=== PATIENT | female | born 1975 | race Caucasian/White ===

== ENCOUNTER 2016-10-03 18:26 | Emergency (ER) | payer OTHER ==
--- NOTE | 2016-10-03 18:43 | ER Document Report ---
ED Medical Screen (RME) - General Stated Complaint: RIGHT FOOT INJURY Notes: 41 yo female c/o pain to right foot x 3 days. dropped top of paper shredder on top of foot. tenderness to distal dorsal mid foot. + echymosis. TRAVEL OUTSIDE OF THE [place] IN LAST 30 DAYS: No - Related Data Allergies/Adverse Reactions: oxycodone [Oxycodone] Allergy (Severe, Verified 04/06/15 10:34) NAUSEA,DIZZINESS latex [Latex] Allergy (Verified 04/06/15 10:32) ITCHING morphine [Morphine] Adverse Reaction (Severe, Verified 04/06/15 10:32) CHEST HEAVY,SOB Past Medical History - Past Medical History Cardiac Medical History: Reports: Hx Hypertension - meds x yrs/160/102 office aware Denies: Hx Coronary Artery Disease, Hx Heart Attack Pulmonary Medical History: Reports: Hx Bronchitis, Hx Pneumonia Denies: Hx Asthma, Hx COPD Neurological Medical History: Reports: Hx Migraine. 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
[2016-10-03 22:06] VITALS: BP 138/100
--- NOTE | 2016-10-03 22:28 | ER Document Report ---
ED General - General Chief Complaint: Foot Pain Stated Complaint: RIGHT FOOT INJURY Mode of Arrival: Ambulatory Information source: Patient Notes: Patient is 41 yo white female who presents with right foot pain, swelling and bruising that started 2 days ago but progressively worsened today. She states she dropped her cell phone on the top of her foot and then a few hours later, dropped the top of the paper shredder to the same area. States she is able to ambulate but pain is worse with ambulation. She has tried aleve with no relief. TRAVEL OUTSIDE OF THE [place] IN LAST 30 DAYS: No - Related Data Allergies/Adverse Reactions: oxycodone [Oxycodone] Allergy (Severe, Verified 10/03/16 18:42) NAUSEA,DIZZINESS latex [Latex] Allergy (Verified 10/03/16 18:42) ITCHING morphine [Morphine] Adverse Reaction (Severe, Verified 10/03/16 18:42) CHEST HEAVY,SOB Past Medical History - Social History Smoking Status: Never Smoker Chew tobacco use (# tins/day): No Frequency of alcohol use: None Drug Abuse: None Family History: Reviewed & Not Pertinent Patient has suicidal ideation: No Patient has homicidal ideation: No - Past Medical History Cardiac Medical History: Reports: Hx Hypertension - meds x yrs/160/102 office aware Denies: Hx Coronary Artery Disease, Hx Heart Attack Pulmonary Medical History: Reports: Hx Bronchitis, Hx Pneumonia Denies: Hx Asthma, Hx COPD Neurological Medical History: Reports: Hx Migraine. Denies: Hx Cerebrovascular Accident, Hx Seizures Renal/ Medical History: Reports: Hx Kidney Stones. 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 Past Surgical History: Reports: Hx Cholecystectomy, Hx Genitourinary Surgery - ureter repair, Hx Gynecologic Surgery - D&C x2; endometrial biopsy, Hx Kidney ( Renal Surgery) - kidney stone removal - Immunizations Hx Diphtheria, Pertussis, Tetanus Vaccination: Yes Review of Systems - Review of Systems Constitutional: No symptoms reported EENT: No symptoms reported Cardiovascular: No symptoms reported Respiratory: No symptoms reported Gastrointestinal: No symptoms reported Genitourinary: No symptoms reported Female Genitourinary: No symptoms reported Musculoskeletal: See HPI Skin: No symptoms reported Hematologic/Lymphatic: No symptoms reported Neurological/Psychological: No symptoms reported Physical Exam - Vital signs Vitals: Temp Pulse Resp BP Pulse Ox 97.6 F 65 18 149/94 H 99 10/03/16 18:39 10/03/16 18:39 10/03/16 18:39 10/03/16 18:39 10/03/16 18:39 Interpretation: Hypertensive - Notes Notes: PHYSICAL EXAM: CONSTITUTIONAL: Alert and oriented, well-appearing and in no acute distress. HENT: Normocephalic, atraumatic. Moist mucous membranes. HEART: Regular rate and rhythm without murmurs. LUNGS: CTAB and equal. No wheezes, rales or rhonchi. EXTREMITIES: Right foot - tender to palpation to dorsal surface of foot just proximal to MTP joints with associated ecchymosis and mild swelling. No obvious deformities noted. Distal pulses intact. Normal range of motion but flexion/ extension of toes causes pain. no pitting edema. No cyanosis. Cap Refill <3 seconds. SKIN: Warm and dry. Normal turgor. No rashes or lesions noted. Course - Re-evaluation Re-evalutation: 10/03/16 22:26 Patient seen and examined. Exam of right foot reveals ecchymosis and mild swelling, no obvious deformities. Neurovascular intact. No compartment syndrome noted. Xray study reviewed and is negative for acute bony abnormality. Diagnosed with contusion to area - will provide KEVIN wrap for comfort, patient has crutches at home. Will provide scripts for pain medication, discharged home in stable condition. Instructed to follow-up with PMD as needed. Patient gave verbal agreement with plan, all questions answered. - Vital Signs Vital signs: Temp Pulse Resp BP Pulse Ox 98.5 F 67 16 138/100 H 98 10/03/16 22:03 10/03/16 22:03 10/03/16 22:03 10/03/16 22:03 10/03/16 22:03 - Diagnostic Test Radiology reviewed: Image reviewed, Reports reviewed Procedures - Immobilization Right Foot Pre-Proc Neuro Vasc Exam: Normal Immobilizer type: Kevin wrap Performed by: GLENN Post-Proc Neuro Vasc Exam: Normal Alignment checked and good: Yes Discharge - Discharge Clinical Impression: Contusion, foot Qualifiers: Encounter type: initial encounter Laterality: right Qualified Code(s): S90.31XA - Contusion of right foot, initial encounter Condition: Stable Disposition: HOME, SELF-CARE Additional Instructions: Contusion Your injury has resulted in a contusion -- a crushing of the deep tissues. No injury to important structures was detected during the physician's exam. Contusions vary in the amount of pain they cause, and in the length of time required for healing. Typically, the area will become bruised, and will remain painful to touch for two or three weeks. However, most patients are back to working and playing within a few days. After the initial period of rest and cold-packs, your symptoms (together with the doctor's recommendations) will determine how rapidly you can get back to full activity. Usually this means "do what feels okay, but don't do things that hurt." If re-examination was recommended, it's important to follow up as instructed. Call the doctor or return any time if pain increases, if swelling becomes severe, if you develop numbness or weakness in an injured extremity, or if any other alarming symptoms occur. Oral Narcotic Medication You have been given a prescription for pain control. This medication is a narcotic. It's best taken with food, as nausea can result if taken on an empty stomach. Don't operate machinery or drive within six hours of taking this medication. Do not combine this medicine with alcohol, or with any medication which can cause sedation (such as cold tablets or sleeping pills) unless you get permission from the physician. Narcotics tend to cause constipation. If possible, drink plenty of fluids and eat a diet high in fiber and fruits. Anti-Inflammatory Medication You have received a prescription for an antiinflammatory agent. This is an excellent, safe drug for pain control. In addition, it has potent antiinflammatory effects which are beneficial, especially in the treatment of injuries, arthritis, or tendonitis. It's best to take this medicine with food. Persons with ulcer disease or allergy to aspirin should notify their physician of this before taking this drug. Take the medication exactly as prescribed. Don't take additional doses unless instructed to do so by your doctor. If you develop wheezing, shortness of breath, hives, faintness, stomach pain, vomiting, or dark black stools, return for re-evaluation at once. Return immediately for any new or worsening symptoms. Follow-up with primary care provider, call tomorrow to make followup appointment. Prescriptions: Tramadol HCl [Ultram] 50 mg PO Q8HP PRN #10 tablet PRN Reason: Ondansetron [Zofran Odt 4 mg Tablet] 1 tab PO Q4H PRN #10 tab.rapdis PRN Reason: For Nausea/Vomiting Forms: Elevated Blood Pressure, Return to Work
== END 2016-10-03 22:30 | disposition home or self-care (01) ==
LOC: ER 18:26
DX: S90.31XA Contusion of right foot, initial encounter (principal); W20.8XXA Other cause of strike by thrown, projected or falling object, initial encounter; I10 Essential (primary) hypertension; Z88.5 Allergy status to narcotic agent; Z91.040 Latex allergy status
CPT/HCPCS: 99283

== ENCOUNTER 2016-11-30 18:40 | Emergency (ER) | payer OTHER ==
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
[2016-12-01 05:09] VITALS: BP 165/98
== END 2016-11-30 23:35 | disposition home or self-care (01) ==
LOC: ER 18:40
DX: M25.571 Pain in right ankle and joints of right foot (principal); I10 Essential (primary) hypertension; Z87.442 Personal history of urinary calculi; Z90.49 Acquired absence of other specified parts of digestive tract
CPT/HCPCS: 99283; 73610; L1902

== ENCOUNTER 2017-08-22 17:54 | Emergency (ER) | payer OTHER ==
[2017-08-22] MEDS ORDERED: DIPHENHYDRAMINE HCL 50 MG/ML VIAL IV ONE (19:46)
[2017-08-22] MEDS ORDERED: DEXAMETHASONE SOD PHOS INJ 10 MG/1 ML VIAL IV ONE (19:46)
[2017-08-22] MEDS ORDERED: PROCHLORPERAZINE EDISYLATE INJ 10 MG/2 ML VIAL IV ONE (19:46)
--- NOTE | 2017-08-22 19:46 | ER Document Report ---
ED Medical Screen (RME) - General Chief Complaint: High Blood Pressure Stated Complaint: BLOOD PRESSURE ISSUES Time Seen by Provider: 08/22/17 18:28 Mode of Arrival: Ambulatory Information source: Patient Notes: Patient presents complaining of headache for the past week. Patient states pain is to bilateral temporal area. Patient also reports that her blood pressures been running higher than normal and was 157/108 at home. Patient denies any head injury. Patient has been compliant with her antihypertensive medications. Patient took Fioricet tablets at home today without relief of her headache symptoms. Patient states this headache is typical of migraines that she has had in the past. Patient does report photophobia phonophobia. I have greeted and performed a rapid initial assessment of this patient. A comprehensive ED assessment and evaluation of the patient, analysis of test results and completion of the medical decision making process will be conducted by additional ED providers. TRAVEL OUTSIDE OF THE [place] IN LAST 30 DAYS: No - Related Data Allergies/Adverse Reactions: oxycodone [Oxycodone] Allergy (Severe, Verified 10/03/16 18:42) NAUSEA,DIZZINESS latex [Latex] Allergy (Verified 10/03/16 18:42) ITCHING morphine [Morphine] Adverse Reaction (Severe, Verified 10/03/16 18:42) CHEST HEAVY,SOB Past Medical History - Social History Frequency of alcohol use: None Drug Abuse: None - Past Medical History Cardiac Medical History: Reports: Hx Hypertension - meds x yrs/160/102 office aware Denies: Hx Coronary Artery Disease, Hx Heart Attack Pulmonary Medical History: Reports: Hx Bronchitis, Hx Pneumonia Denies: Hx Asthma, Hx COPD Neurological Medical History: Reports: Hx Migraine. Denies: Hx Cerebrovascular Accident, Hx Seizures Renal/ Medical History: Reports: Hx Kidney Stones. 

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
[2017-08-23 01:02] VITALS: BP 135/97
== END 2017-08-23 01:00 | disposition home or self-care (01) ==
LOC: ER 17:54
DX: R51 Headache (principal); R03.0 Elevated blood-pressure reading, without diagnosis of hypertension
CPT/HCPCS: 99283; 96374; 96375; J1200; J0780; J1100

== ENCOUNTER → 2017-09-02 | Outpatient (CLI) | payer OTHER ==
--- NOTE | 2017-09-02 15:04 | RADIOLOGY REPORT (SQ) ---
EXAM DESCRIPTION: CT HEAD WITHOUT COMPLETED DATE/TIME: 09/02/2017 2:03 pm REASON FOR STUDY: R51 HEADACHE R51 HEADACHE COMPARISON: None. TECHNIQUE: Axial images acquired through the brain without intravenous contrast. Images reviewed wi th bone, brain and subdural windows. Images stored on PACS. All CT scanners at this facility use dose modulation, iterative reconstruction, and/or weight based d osing when appropriate to reduce radiation dose to as low as reasonably achievable (ALARA). [facility]: Dose Right [facility]: CareDose [facility]: Dose Right [facility]: Teradose 4D [facility]: Immedia RADIATION DOSE: CT Rad equipment meets quality standard of care and radiation dose reduction techniq ues were employed. CTDIvol: 49.0 mGy. DLP: 783 mGy-cm. mGy. LIMITATIONS: None. FINDINGS: VENTRICLES: Normal size and contour. CEREBRUM: No masses. No hemorrhage. No midline shift. No evidence for acute infarction. Normal gra y/white matter differentiation. No areas of low density in the white matter. CEREBELLUM: No masses. No hemorrhage. No alteration of density. No evidence for acute infarction. EXTRAAXIAL SPACES: No fluid collections. No masses. ORBITS AND GLOBE: No intra- or extraconal masses. Normal contour of globe without masses. CALVARIUM: No fracture. PARANASAL SINUSES: No fluid or mucosal thickening. SOFT TISSUES: No mass or hematoma. OTHER: No other significant finding. IMPRESSION: NORMAL BRAIN CT WITHOUT CONTRAST. EVIDENCE OF ACUTE STROKE: NO. COMMENT: Quality ID # [id number]: Final reports with documentation of one or more dose reduction techniques (e.g., Automated exposure control, adjustment of the mA and/or kV according to patient size, use of iterative reconstruction technique) TECHNICAL DOCUMENTATION: JOB ID: [id number] 2010 [employer]- All Rights Reserved
== END ==
LOC: RAD 14:17
PROVIDERS: ATTEND Physician Assistant
DX: R51 Headache (principal)
CPT/HCPCS: 70450

== ENCOUNTER 2018-02-18 19:24 | Emergency (ER) | payer OTHER ==
[2018-02-18] MEDS ORDERED: ASPIRIN 81 MG TABLET, CHEWABLE PO ONE (19:30)
--- NOTE | 2018-02-18 19:57 | RADIOLOGY REPORT (SQ) ---
EXAM DESCRIPTION: CHEST SINGLE VIEW COMPLETED DATE/TIME: 02/18/2018 7:43 pm REASON FOR STUDY: cp COMPARISON: 09/25/2014 EXAM PARAMETERS: NUMBER OF VIEWS: One view. TECHNIQUE: Single frontal radiographic view of the chest acquired. RADIATION DOSE: NA LIMITATIONS: None. FINDINGS: LUNGS AND PLEURA: No opacities, masses or pneumothorax. No pleural effusion. MEDIASTINUM AND HILAR STRUCTURES: No masses. Contour normal. HEART AND VASCULAR STRUCTURES: Heart normal in size. Normal vasculature. BONES: No acute findings. HARDWARE: None in the chest. OTHER: No other significant finding. IMPRESSION: NO ACUTE RADIOGRAPHIC FINDING IN THE CHEST. TECHNICAL DOCUMENTATION: JOB ID: [id number] [place]-72 2010 [employer]- All Rights Reserved Reading location - IP/workstation name: [place]
[2018-02-18 20:31] LABS: ABSOLUTE BASOPHILS # (AUTO) 0.1 10^3/uL (0.0-0.2); ABSOLUTE EOSINOPHILS # (AUTO) 0.2 10^3/uL (0.0-0.6); ABSOLUTE LYMPHOCYTES (AUTO) 1.8 10^3/uL (0.5-4.7); ABSOLUTE MONOCYTES (AUTO) 0.5 10^3/uL (0.1-1.4); ABSOLUTE NEUT (AUTO) 8.8 10^3/uL (1.7-8.2); BASOPHILS % (AUTO) 0.7 % (0-2); EOSINOPHILS % (AUTO) 1.4 % (0-6); HEMATOCRIT 43.1 % (36.0-47.0); HEMOGLOBIN 14.3 g/dL (12.0-15.5); LYMPHOCYTES % (AUTO) 16.1 % (13-45); MEAN CORPUSCULAR HGB CONC 33.2 g/dL (32.0-36.0); MEAN CORPUSCULAR VOLUME 84 fl (80-97); MONOCYTES % (AUTO) 4.5 % (3-13); PLATELET COUNT 329 10^3/uL (150-450); RED BLOOD COUNT 5.11 10^6/uL (3.72-5.28); RED CELL DISTRIBUTION WIDTH 14.4 % (11.5-14.0); SEGMENTED NEUTROPHILS % (AUTO) 77.3 % (42-78); TOTAL CELLS COUNTED % (AUTO) 100 %; WHITE BLOOD COUNT 11.4 10^3/uL (4.0-10.5)
--- NOTE | 2018-02-18 20:43 | ER Document Report ---
ED Medical Screen (RME) - General Chief Complaint: High Blood Pressure Stated Complaint: CHEST PAIN Time Seen by Provider: 02/18/18 20:33 Mode of Arrival: Ambulatory Information source: Patient Notes: 43-year-old female patient presenting with chief complaint of chest pain, dizziness and mild headache. Patient reports that her blood pressure has typically been controlled with her lisinopril and HCTZ however over the last few days her blood pressures have been in the 160s over 110 range. Patient reports that the chest pain started approximately 1 hour prior to arrival, feels like an achiness or pressure on the left side of her chest with mild radiation into the right shoulder. Patient reports associated shortness of breath with mild nausea. Pain is reproducible with palpation. Exam: Tenderness to palpation to left chest wall and left shoulder. Lung sounds clear to auscultation bilaterally. I have greeted and performed a rapid initial assessment of this patient. A comprehensive ED assessment and evaluation of the patient, analysis of test results and completion of the medical decision making process will be conducted by additional ED providers. Dictation of this chart was performed using voice recognition software; therefore, there may be some unintended grammatical errors. TRAVEL OUTSIDE OF THE [place] IN LAST 30 DAYS: No - Related Data Allergies/Adverse Reactions: oxycodone [Oxycodone] Allergy (Severe, Verified 10/03/16 18:42) NAUSEA,DIZZINESS latex [Latex] Allergy (Verified 10/03/16 18:42) ITCHING morphine [Morphine] Adverse Reaction (Severe, Verified 10/03/16 18:42) CHEST HEAVY,SOB Past Medical History - Social History Chew tobacco use (# tins/day): No Frequency of alcohol use: None Drug Abuse: None - Past Medical History Cardiac Medical History: Reports: Hx Hypertension - meds x yrs/160/102 office aware Denies: Hx Coronary Artery Disease, Hx Heart Attack Pulmonary Medical History: Reports: Hx Bronchitis, Hx Pneumonia Denies: Hx Asthma, Hx COPD Neurological Medical History: Reports: Hx Migraine. Denies: Hx Cerebrovascular Accident, Hx Seizures Renal/ Medical History: Reports: Hx Kidney Stones. 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 Past Surgical History: Reports: Hx Cholecystectomy, Hx Genitourinary Surgery - ureter repair, Hx Gynecologic Surgery - D&C x2; endometrial biopsy, Hx Kidney ( Renal Surgery) - kidney stone removal - Immunizations Hx Diphtheria, Pertussis, Tetanus Vaccination: Yes Physical Exam - Vital signs Vitals: Temp Pulse Resp BP Pulse Ox 98.7 F 80 18 189/111 H 100 02/18/18 19:28 02/18/18 19:28 02/18/18 19:28 02/18/18 19:28 02/18/18 19:28 Course - Vital Signs Vital signs: Temp Pulse Resp BP Pulse Ox 98.7 F 80 18 161/116 H 100 02/18/18 19:28 02/18/18 19:28 02/18/18 19:28 02/18/18 19:37 02/18/18 19:28 - Laboratory Result Diagrams: 02/18/18 19:50 02/18/18 19:50 Laboratory results interpreted by me: 02/18/18 19:50 WBC 11.4 H RDW 14.4 H Absolute Neutrophils 8.8 H Doctor's Discharge - Discharge Referrals: ZAINAB KNAPP PA-C [Primary Care Provider] - Follow up as needed
[2018-02-18 21:02] LABS: ALBUMIN 4.4 g/dL (3.5-5.0); ALKALINE PHOSPHATASE 107 U/L (38-126); ANION GAP 15 (5-19); ASPARTATE AMINO TRANSFERASE 31 U/L (14-36); BLOOD UREA NITROGEN 11 mg/dL (7-20); CALCIUM 9.3 mg/dL (8.4-10.2); CARBON DIOXIDE 23 mmol/L (22-30); CHLORIDE 107 mmol/L (98-107); GLUCOSE 104 mg/dL (75-110); POTASSIUM 4.7 mmol/L (3.6-5.0); SODIUM 144.8 mmol/L (137-145)
[2018-02-18 21:03] LABS: ALANINE AMINOTRANSFERASE 36 U/L (9-52); BILIRUBIN,DIRECT 0.4 mg/dL (0.0-0.4); BILIRUBIN,TOTAL 0.6 mg/dL (0.2-1.3); CREATINE KINASE 46 U/L (30-135); TOTAL PROTEIN 8.1 g/dL (6.3-8.2)
[2018-02-18 21:20] LABS: CREATINE KINASE MB < 0.22 ng/mL (<4.55); TROPONIN I < 0.012 ng/mL
--- NOTE | 2018-02-19 00:13 | EKG REPORT ---
SEVERITY:- ABNORMAL ECG - SINUS RHYTHM LEFT VENTRICULAR HYPERTROPHY : Confirmed by: Destiny Diaz MD 19-Feb-2018 00:12:54
--- NOTE | 2018-02-19 02:03 | ER Document Report ---
ED General - General Mode of Arrival: Ambulatory Information source: Patient TRAVEL OUTSIDE OF THE [place] IN LAST 30 DAYS: No <RONNY LAO - Last Filed: 02/19/18 02:25> <CONNER STACK - Last Filed: 02/19/18 03:28> - General Chief Complaint: High Blood Pressure Stated Complaint: CHEST PAIN Time Seen by Provider: 02/18/18 20:33 Notes: Patient is a 43 year old female with HTN and insomnia presents to the emergency department complaining of multiple symptoms including high blood pressure, dizziness and chest pain. Patient sates that she has HTN which is normally controlled with Linisopril and HCTZ. For the last few days she states her blood pressure has been around 175/111 further stating her blood pressure is typically around 150/108. She describes her chest pain as a dull and achy chest pressure onset yesterday. She also complains of decreased apetiite. Patient denies any trouble breathing, diaphoresis, nausea or taking decongestants. (RONNY LAO) - Related Data Allergies/Adverse Reactions: oxycodone [Oxycodone] Allergy (Severe, Verified 10/03/16 18:42) NAUSEA,DIZZINESS latex [Latex] Allergy (Verified 10/03/16 18:42) ITCHING morphine [Morphine] Adverse Reaction (Severe, Verified 10/03/16 18:42) CHEST HEAVY,SOB Past Medical History - General Information source: Patient - Social History Smoking Status: Never Smoker Chew tobacco use (# tins/day): No Frequency of alcohol use: None Drug Abuse: None Family History: Hypertension, Malignancy Patient has suicidal ideation: No Patient has homicidal ideation: No - Past Medical History Cardiac Medical History: Reports: Hx Hypertension - meds x yrs/160/102 office aware Pulmonary Medical History: Reports: Hx Bronchitis, Hx Pneumonia Neurological Medical History: Reports: Hx Migraine Renal/ Medical History: Reports: Hx Kidney Stones Musculoskeletal Medical History: 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 Past Surgical History: Reports: Hx Cholecystectomy, Hx Genitourinary Surgery - ureter repair, Hx Gynecologic Surgery - D&C x2; endometrial biopsy, Hx Kidney ( Renal Surgery) - kidney stone removal - Immunizations Hx Diphtheria, Pertussis, Tetanus Vaccination: Yes <RONNY LAO - Last Filed: 07/25/18 02:25> Review of Systems - Review of Systems Constitutional: No symptoms reported EENT: No symptoms reported Cardiovascular: See HPI, Chest pain, Dizziness Respiratory: No symptoms reported Gastrointestinal: No symptoms reported Genitourinary: No symptoms reported Female Genitourinary: No symptoms reported Musculoskeletal: No symptoms reported Skin: No symptoms reported Hematologic/Lymphatic: No symptoms reported Neurological/Psychological: No symptoms reported -: Yes All other systems reviewed and negative <RONNY LAO - Last Filed: 02/19/18 02:25> Physical Exam <RONNY LAO - Last Filed: 02/19/18 02:25> <CONNER STACK - Last Filed: 02/19/18 03:28> - Vital signs Vitals: Temp Pulse Resp BP Pulse Ox 98.7 F 80 18 189/111 H 100 02/18/18 19:28 02/18/18 19:28 02/18/18 19:28 02/18/18 19:28 02/18/18 19:28 - Notes Notes: GENERAL: Alert, interacts well. No acute distress. HEAD: Normocephalic, atraumatic. EYES: Pupils equal, round, and reactive to light. Extraocular movements intact. ENT: Oral mucosa moist, tongue midline. NECK: Full range of motion. Supple. Trachea midline. LUNGS: Clear to auscultation bilaterally, no wheezes, rales, or rhonchi. No respiratory distress. HEART: Regular rate and rhythm. No murmurs, gallops, or rubs. ABDOMEN: Soft, non-tender. Non-distended. Bowel sounds present in all 4 quadrants. EXTREMITIES: Moves all 4 extremities spontaneously. No edema, radial and dorsalis pedis pulses 2/4 bilaterally. No cyanosis. NEUROLOGICAL: Alert and oriented x3. Normal speech. PSYCH: Normal affect, normal mood. SKIN: Warm, dry, normal turgor. No rashes or lesions noted. (RONNY LAO) Course - Laboratory Result Diagrams: 02/18/18 19:50 02/18/18 19:50 <TASHIAJAKEMICHAEL - Last Filed: 02/19/18 02:25> - Laboratory Result Diagrams: 02/18/18 19:50 02/18/18 19:50 <CONNER STACK - Last Filed: 02/19/18 03:28> - Re-evaluation Re-evalutation: 02/19/18 02:15 CBC shows mild leukocytosis 11.4, CMP grossly unremarkable, cardiac enzymes negative, chest x-ray shows no acute process, EKG is nonischemic. Patient is low risk by the HEART score for ischemic cardiac disease. Patient is stress test 3 years ago which is negative, patient is recommended to have a stress test as an outpatient. Patient will be discharged home. Patient is going to be started on hydralazine here 10 mg and given a prescription to use an outpatient however she has been intolerant of multiple medications in the past so we would like to trial it here first before she fills her prescription as outpatient. Patient is to follow-up with Zainab mg within the next 2 days for a recheck. Etiology of her chest pain is unclear. 02/19/18 02:17 This is not thought to be hypertensive urgency as her chest pain has not changed regardless what her blood pressure is. (CONNER STACK) - Vital Signs Vital signs: Temp Pulse Resp BP Pulse Ox 98.7 F 66 16 137/91 H 100 02/18/18 23:53 02/18/18 23:53 02/19/18 03:01 02/19/18 03:01 02/19/18 03:01 - Laboratory Laboratory results interpreted by me: 02/18/18 19:50 WBC 11.4 H RDW 14.4 H Absolute Neutrophils 8.8 H - EKG Interpretation by Me Additional EKG results interpreted by me: 02/19/18 02:17 EKG shows sinus rhythm at a rate of 77, patient's or depressions, isolated T- wave inversions in lead III per my interpretation. (CONNER STACK) Discharge <RONNY LAO - Last Filed: 02/19/18 02:25> <CONNER STACK - Last Filed: 02/19/18 03:28> - Discharge Clinical Impression: Chest pain with low risk for cardiac etiology, Uncontrolled hypertension Condition: Stable Disposition: HOME, SELF-CARE Additional Instructions: Chest Pain of Unclear Cause The exact cause of your chest pain isn't clear. Fortunately, there is no evidence of a dangerous medical condition. Further testing may be required to find the source of the pain. Most often, we find that this pain is coming from the chest wall -- the muscles or rib joints in the chest. But chest pain can come from the lung and lung lining, the esophagus, the heart valves or heart lining, and even the stomach or gallbladder. Rest. Eat lightly until the pain is gone. We may prescribe medicine for pain and inflammation. You should call the physician immediately if the pain radiates to the shoulder, jaw or arms; if you start to run a fever or develop a cough; or if you develop shortness of breath, or other new or alarming symptoms. Prescriptions: Hydralazine HCl 10 mg PO Q6H #40 tablet Referrals: ZAINAB MG PA-C [Primary Care Provider] - Follow up in 3-5 days Scribe Attestation: 02/19/18 03:28 I personally performed the services described in the documentation, reviewed and edited the documentation which was dictated to the scribe in my presence, and it accurately records my words and actions. (CONNER STACK) Scribe Documentation - Scribe Written by Yevgeniy:: Yevgeniy Quintero, 02/19/2018 02:11 acting as scribe for :: Rosalva <RONNY LAO - Last Filed: 02/19/18 02:25>
[2018-02-19] MEDS ORDERED: HYDRALAZINE HCL 10 MG TABLET PO ONE (02:15)
[2018-02-19 03:04] VITALS: BP 137/91
== END 2018-02-19 03:09 | disposition home or self-care (01) ==
LOC: ER 19:24
DX: R07.9 Chest pain, unspecified (principal); I10 Essential (primary) hypertension; Z87.442 Personal history of urinary calculi; Z90.49 Acquired absence of other specified parts of digestive tract; Z91.040 Latex allergy status; Z88.6 Allergy status to analgesic agent
CPT/HCPCS: 93005; 99284; 36415; 82553; 82550; 85025; 80053; 84484; 71045; 93010; J3490

== ENCOUNTER 2018-09-07 05:55 | Emergency (ER) | payer OTHER ==
[2018-09-07] MEDS ORDERED: KETOROLAC TROMETHAMINE INJ/PF 30 MG/1 ML SDV IV ONE (06:43)
[2018-09-07] MEDS ORDERED: IPRATROPIUM/ALBUTEROL 0.5-2.5 MG/3 ML AMPUL NEB ONE (06:43)
[2018-09-07] MEDS ORDERED: NORMAL SALINE 1000 ML 1,000 ML IV ONE (06:43)
--- NOTE | 2018-09-07 06:46 | ER Document Report ---
ED General - General Chief Complaint: Chest Congestion Stated Complaint: CHEST CONGESTION Time Seen by Provider: 09/07/18 06:31 Primary Care Provider: ZAINAB KNAPP PA-C [Primary Care Provider] - Follow up as needed TRAVEL OUTSIDE OF THE [place] IN LAST 30 DAYS: No - HPI Notes: Patient is a 43-year-old female that presents to the emergency department for chief complaint of cough, congestion, nausea, vomiting, diarrhea. Patient reports 4 days of cough, sinus congestion and postnasal drip. She states she has a history of bronchitis and has occasionally used an inhaler when she has colds. She denies any tobacco use. She did not get an influenza vaccine this year. She states her temperature yesterday was 100.0 at home. She has been taking [place] with cold remedy but has not been able to tolerated in the last 2 days. She states she has had increased nausea vomiting and diarrhea for 2 days. She denies any associated abdominal pain. Past Medical History: Hypertension Past Surgical History: Cholecystectomy, hysterectomy Social History: Denies drugs alcohol and tobacco Family History: Reviewed and noncontributory for presenting illness Allergies: Reviewed, see documented allergy list. REVIEW OF SYSTEMS: CONSTITUTIONAL : fever No chills No diaphoresis No recent illness EENT: No vision changes No congestion No sore throat CARDIOVASCULAR: No chest pain No palpitations RESPIRATORY: shortness of breath cough GASTROINTESTINAL: No abdominal pain nausea vomiting diarrhea GENITOURINARY: No dysuria No hematuria No difficulty urinating MUSCULOSKELETAL: No back pain No leg pain No arm pain SKIN: No rashes No lesions LYMPHATIC: No swollen, enlarged glands. NEUROLOGICAL: No lightheadedness No headache No weakness No paresthesias PSYCHIATRIC: No anxiety No depression PHYSICAL EXAMINATION: Vital signs reviewed, nursing noted reviewed. GENERAL: Well-appearing, well-nourished and in no acute distress. HEAD: Atraumatic, normocephalic. EYES: Eyes appear normal, extraocular movements intact, sclera anicteric, conjunctiva are normal. ENT: nares patent, oropharynx clear without exudates. Mildly dry mucous membranes. NECK: Normal range of motion, supple without lymphadenopathy LUNGS: Breath sounds have mild end expiratory wheezing. No accessory muscle use or retractions HEART: Tachycardic rate and regular rhythm without murmurs ABDOMEN: Soft, nontender, normoactive bowel sounds. No rebound, guarding, or rigidity. No masses appreciated. EXTREMITIES: Nontender, good range of motion, no pitting or edema. NEUROLOGICAL: No focal neurological deficits. Moves all extremities spontane ously Motor and sensory grossly intact on exam. PSYCH: Normal mood, normal affect. SKIN: Warm, Dry, normal turgor, no rashes or lesions noted on exposed skin - Related Data Allergies/Adverse Reactions: oxycodone [Oxycodone] Allergy (Severe, Verified 09/07/18 06:38) NAUSEA,DIZZINESS hydrocodone Allergy (Verified 09/07/18 06:38) latex [Latex] Allergy (Verified 09/07/18 06:38) ITCHING morphine [Morphine] Adverse Reaction (Severe, Verified 09/07/18 06:38) CHEST HEAVY,SOB Past Medical History - Social History Smoking Status: Never Smoker Frequency of alcohol use: None Drug Abuse: None Family History: Hypertension, Malignancy Patient has suicidal ideation: No Patient has homicidal ideation: No - Past Medical History Cardiac Medical History: Reports: Hx Hypertension - meds x yrs/160/102 office aware Denies: Hx Coronary Artery Disease, Hx Heart Attack Pulmonary Medical History: Reports: Hx Bronchitis, Hx Pneumonia Denies: Hx Asthma, Hx COPD Neurological Medical History: Reports: Hx Migraine. Denies: Hx Cerebrovascular Accident, Hx Seizures Renal/ Medical History: Reports: Hx Kidney Stones. 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 Nursing notes reviewed. Patient is afebrile and nontoxic in appearance. She is mildly tachycardic with dry mucous membranes and was given IV hydration, Toradol and DuoNeb for symptom medic management. 09/07/18 07:48 Patient reevaluated. She does report some symptomatic improvement after medication. Chest x-ray shows no underlying pneumonia. Her influenza is negative. Her lab work shows a mild elevation in LFTs likely related to her recent vomiting. Her abdomen is soft with no focal tenderness and she is status post cholecystectomy. I do not feel further imaging of her abdomen is currently indicated. She was counseled on taking her albuterol inhaler 2 puffs every 4 hours and will be given Tessalon Perles for further cough management. She is breathing well on room air and is stable for discharge. She will follow with primary care in the next few days for reevaluation. Laboratory 09/07/18 09/07/18 09/07/18 06:50 06:50 06:52 WBC 8.2 RBC 5.14 Hgb 14.4 Hct 42.6 MCV 83 MCH 28.0 MCHC 33.7 RDW 14.7 H Plt Count 316 Seg Neutrophils % 84.9 H Lymphocytes % 5.7 L Monocytes % 6.8 Eosinophils % 1.8 Basophils % 0.8 Absolute Neutrophils 7.0 Absolute Lymphocytes 0.5 Absolute Monocytes 0.6 Absolute Eosinophils 0.1 Absolute Basophils 0.1 Sodium 141.3 Potassium 4.3 Chloride 105 Carbon Dioxide 24 Anion Gap 12 BUN 13 Creatinine 0.58 Est GFR ( Amer) > 60 Est GFR (Non-Af Amer) > 60 Glucose 103 Calcium 9.2 Total Bilirubin 0.7 Direct Bilirubin 0.5 H Neonat Total Bilirubin Not Reportable Neonat Direct Bilirubin Not Reportable Neonat Indirect Bili Not Reportable AST 146 H ALT 83 H Alkaline Phosphatase 165 H Total Protein 8.1 Albumin 4.6 Influenza A (Rapid) NEGATIVE Influenza B (Rapid) NEGATIVE Chest X-Ray 09/07/18 06:31 IMPRESSION: No evidence of acute intrathoracic disease. - Vital Signs Vital signs: Temp Pulse Resp BP Pulse Ox 99.8 F 104 H 16 142/106 H 100 09/07/18 06:13 09/07/18 06:13 09/07/18 06:13 09/07/18 06:13 09/07/18 06:13 - Laboratory Result Diagrams: 09/07/18 06:50 09/07/18 06:50 Laboratory results interpreted by me: 09/07/18 09/07/18 06:50 06:50 RDW 14.7 H Seg Neutrophils % 84.9 H Lymphocytes % 5.7 L Direct Bilirubin 0.5 H AST 146 H ALT 83 H Alkaline Phosphatase 165 H Discharge - Discharge Clinical Impression: URI (upper respiratory infection) Qualifiers: URI type: unspecified URI Qualified Code(s): J06.9 - Acute upper respiratory infection, unspecified Vomiting Qualifiers: Vomiting type: unspecified Vomiting Intractability: non-intractable Nausea presence: with nausea Qualified Code(s): R11.2 - Nausea with vomiting, unspecified Condition: Stable Disposition: HOME, SELF-CARE Instructions: Upper Respiratory Illness ([facility]) Additional Instructions: Please return to the emergency department if you have any worsening, or concern of your symptoms. Please return to the emergency department if you develop chest pain, difficulty breathing, severe abdominal pain, or ongoing vomiting. Please follow-up with your primary care physician in 2-3 days and any other recommended physicians. If prescribed, take all medications as directed. If you have any questions or concerns do not hesitate to return the emergency department for evaluation. Use your albuterol inhaler 2 puffs every 4 hours as needed for cough Prescriptions: Benzonatate [Tessalon Perles 100 mg Capsule] 100 mg PO Q8HP PRN #30 capsule PRN Reason: Forms: Return to Work Referrals: ZAINAB KNAPP PA-C [Primary Care Provider] - Follow up in 3-5 days
[2018-09-07 07:00] LABS: ABSOLUTE BASOPHILS # (AUTO) 0.1 10^3/uL (0.0-0.2); ABSOLUTE EOSINOPHILS # (AUTO) 0.1 10^3/uL (0.0-0.6); ABSOLUTE LYMPHOCYTES (AUTO) 0.5 10^3/uL (0.5-4.7); ABSOLUTE MONOCYTES (AUTO) 0.6 10^3/uL (0.1-1.4); BASOPHILS % (AUTO) 0.8 % (0-2); EOSINOPHILS % (AUTO) 1.8 % (0-6); HEMATOCRIT 42.6 % (36.0-47.0); HEMOGLOBIN 14.4 g/dL (12.0-15.5); LYMPHOCYTES % (AUTO) 5.7 % (13-45); MEAN CORPUSCULAR HGB CONC 33.7 g/dL (32.0-36.0); MEAN CORPUSCULAR VOLUME 83 fl (80-97); MONOCYTES % (AUTO) 6.8 % (3-13); PLATELET COUNT 316 10^3/uL (150-450); RED BLOOD COUNT 5.14 10^6/uL (3.72-5.28); RED CELL DISTRIBUTION WIDTH 14.7 % (11.5-14.0); SEGMENTED NEUTROPHILS % (AUTO) 84.9 % (42-78); TOTAL CELLS COUNTED % (AUTO) 100 %; WHITE BLOOD COUNT 8.2 10^3/uL (4.0-10.5)
--- NOTE | 2018-09-07 07:06 | RADIOLOGY REPORT (SQ) ---
EXAM DESCRIPTION: X-ray single view chest. CLINICAL HISTORY: 43 years Female, cough COMPARISON: 02/18/2018 TECHNIQUE: Single portable view of the chest performed on 09/07/2018 at 6:50 AM FINDINGS: The lungs are well expanded and are clear. There is no evidence of a pneumothorax. The cardiac silhouette is normal in size and configuration. The mediastinal contours are normal. No acute osseous abnormality is identified. No focal soft tissue abnormalities are seen. Lines and tubes: None. IMPRESSION: No evidence of acute intrathoracic disease.
[2018-09-07 07:19] LABS: ALANINE AMINOTRANSFERASE 83 U/L (9-52); ALBUMIN 4.6 g/dL (3.5-5.0); ALKALINE PHOSPHATASE 165 U/L (38-126); ANION GAP 12 (5-19); ASPARTATE AMINO TRANSFERASE 146 U/L (14-36); BILIRUBIN,DIRECT 0.5 mg/dL (0.0-0.4); BILIRUBIN,TOTAL 0.7 mg/dL (0.2-1.3); BLOOD UREA NITROGEN 13 mg/dL (7-20); CALCIUM 9.2 mg/dL (8.4-10.2); CARBON DIOXIDE 24 mmol/L (22-30); CHLORIDE 105 mmol/L (98-107); GLUCOSE 103 mg/dL (75-110); POTASSIUM 4.3 mmol/L (3.6-5.0); SODIUM 141.3 mmol/L (137-145); TOTAL PROTEIN 8.1 g/dL (6.3-8.2)
[2018-09-07 07:28] LABS: A TYPE INFLUENZA AG NEGATIVE (NEGATIVE); B INFLUENZA AG NEGATIVE (NEGATIVE)
[2018-09-07 08:00] VITALS: BP 146/84
== END 2018-09-07 08:00 | disposition home or self-care (01) ==
LOC: ER 05:55
DX: J06.9 Acute upper respiratory infection, unspecified (principal); R05 Cough; R11.2 Nausea with vomiting, unspecified; R79.89 Other specified abnormal findings of blood chemistry; R19.7 Diarrhea, unspecified; R09.81 Nasal congestion; R09.82 Postnasal drip; R06.02 Shortness of breath; I10 Essential (primary) hypertension; Z90.49 Acquired absence of other specified parts of digestive tract; Z90.710 Acquired absence of both cervix and uterus; R00.0 Tachycardia, unspecified; Z88.5 Allergy status to narcotic agent; Z91.040 Latex allergy status
CPT/HCPCS: 94640; 99283; 96361; 96374; 36415; 85025; 80053; 87804; 71045; J1885; J7030; J7620

== ENCOUNTER 2018-09-08 00:31 | Emergency (ER) | payer OTHER ==
[2018-09-08] MEDS ORDERED: ACETAMINOPHEN 325 MG TABLET PO ONE ×2 (01:10→01:11)
[2018-09-08] MEDS ORDERED: IBUPROFEN 600 MG TABLET PO ONE (01:11)
[2018-09-08] MEDS ORDERED: METOCLOPRAMIDE HCL 10 MG TABLET PO ONE (01:22)
--- NOTE | 2018-09-08 01:26 | ER Document Report ---
ED General - General Chief Complaint: Headache Stated Complaint: HEADACHE Time Seen by Provider: 09/08/18 01:10 Primary Care Provider: ZAINAB KNAPP PA-C [Primary Care Provider] - Follow up as needed Notes: Patient is a 43-year-old female without chronic medical problems, presents of 3 days of sore throat, cough, body aches, headache and fever. Patient was seen in the emergency department yesterday for the same reason, had a relatively reassuring workup at that time, was discharged home with return precautions. Patient returns today stating that she "cannot take this pain anymore" describing a diffuse, throbbing, aching pain throughout the entirety of her body and a moderate to severe headache. Headache is described as unchanged over the last several days. She has not tried anything for relief of her symptoms at home. Has not yet followed up with her primary care doctor. Did not receive an influenza vaccination this year. Has not had vomiting today although was vomiting yesterday. Has been able to tolerate oral intake. Denies any altered mental status, focal weakness, numbness, or neck pain. No neck stiffness. TRAVEL OUTSIDE OF THE [place] IN LAST 30 DAYS: No - Related Data Allergies/Adverse Reactions: oxycodone [Oxycodone] Allergy (Severe, Verified 09/07/18 06:38) NAUSEA,DIZZINESS hydrocodone Allergy (Verified 09/07/18 06:38) latex [Latex] Allergy (Verified 09/07/18 06:38) ITCHING morphine [Morphine] Adverse Reaction (Severe, Verified 09/07/18 06:38) CHEST HEAVY,SOB Past Medical History - General Information source: Patient - Social History Smoking Status: Never Smoker Frequency of alcohol use: None Drug Abuse: None Family History: Hypertension, Malignancy - Past Medical History Cardiac Medical History: Reports: Hx Hypertension - meds x yrs/160/102 office aware Denies: Hx Coronary Artery Disease, Hx Heart Attack Pulmonary Medical History: Reports: Hx Bronchitis, Hx Pneumonia Denies: Hx Asthma, Hx COPD Neurological Medical History: Reports: Hx Migraine. Denies: Hx Cerebrovascular Accident, Hx Seizures Renal/ Medical History: Reports: Hx Kidney Stones. 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 HENT: Positive for sore throat. Eyes: Negative for visual changes. Cardiovascular: Negative for chest pain. Respiratory: Positive for cough Gastrointestinal: Negative for abdominal pain, positive for nausea and vomiting Genitourinary: Negative for dysuria. Musculoskeletal: Positive for myalgias Skin: Negative for rash. Neurological: Negative for headaches, weakness or numbness. 10 point ROS negative except as marked above and in HPI. Physical Exam - Vital signs Vitals: Temp Pulse Resp BP Pulse Ox 102.8 F H 116 H 16 167/94 H 96 09/08/18 00:56 09/08/18 00:56 09/08/18 00:56 09/08/18 00:56 09/08/18 00:56 Course - Re-evaluation Re-evalutation: 09/08/18 01:23 Patient presents with cough, vomiting, diarrhea, and fever at home consistent with a diagnosis of influenza. Influenza testing is positive. Patient is overall well in appearance, in no acute distress. Lung sounds clear. Able to tolerate oral intake without difficulty here in the emergency department. After risks and benefits conversation with the patient regarding the use of Tamiflu, they have elected to use supportive care without Tamiflu based on concerns about lack of efficacy as well as the side effect profile. At this time will discharge with return precautions and follow-up recommendations. Verbal discharge instructions given a the bedside and opportunity for questions given. Medication warnings reviewed. Patient is in agreement with this plan and has verbalized understanding of return precautions and the need for primary care follow-up in the next 24-72 hours. - Vital Signs Vital signs: Temp Pulse Resp BP Pulse Ox 102.8 F H 116 H 16 167/94 H 96 09/08/18 00:56 09/08/18 00:56 09/08/18 00:56 09/08/18 00:56 09/08/18 00:56 Discharge - Discharge Clinical Impression: Influenza A Headache Qualifiers: Headache type: unspecified Headache chronicity pattern: acute headache Intractability: not intractable Qualified Code(s): R51 - Headache Condition: Stable Disposition: HOME, SELF-CARE Additional Instructions: You have influenza. There is no treatment that is effective for this diagnosis other than supportive care at home. This includes drinking plenty of fluids, using Tylenol or ibuprofen as needed for fever and discomfort, and Zofran as needed for nausea and vomiting. Please follow closely with you primary care physician the next 1-2 days regarding this diagnosis. Return to the emergency department immediately if you began to have persistent vomiting prevents you from being able to keep fluids down for more than 12 hours, you pass out, you began having difficulty breathing, you become confused, or you have any other symptoms that are worrisome to you. Referrals: ZAINAB KNAPP PA-C [Primary Care Provider] - Follow up as needed
[2018-09-08 02:06] LABS: A TYPE INFLUENZA AG POSITIVE (NEGATIVE); B INFLUENZA AG NEGATIVE (NEGATIVE)
[2018-09-08] MEDS ORDERED: ONDANSETRON ODT 4 MG TAB (6 TAB/ER DISP) PO PRN (02:16)
[2018-09-08] MEDS ORDERED: KETOROLAC TROMETHAMINE INJ/PF 30 MG/1 ML SDV IV ONE (02:23)
[2018-09-08] MEDS ORDERED: NORMAL SALINE 1000 ML 1,000 ML IV ONE (02:23)
[2018-09-08] MEDS ORDERED: PROCHLORPERAZINE EDISYLATE INJ 10 MG/2 ML VIAL IV ONE (02:23)
[2018-09-08 04:41] VITALS: BP 140/80
== END 2018-09-08 04:30 | disposition home or self-care (01) ==
LOC: ER 00:31
DX: J10.1 Influenza due to other identified influenza virus with other respiratory manifestations (principal); R51 Headache; R05 Cough; M79.10 Myalgia, unspecified site; R50.9 Fever, unspecified; I10 Essential (primary) hypertension; Z79.899 Other long term (current) drug therapy
CPT/HCPCS: 99283; 96361; 96374; 96375; 87070; 87880; 87804; J1885; J0780; J7030

== ENCOUNTER 2019-03-22 22:02 | Emergency (ER) | payer OTHER ==
[2019-03-22] MEDS ORDERED: IBUPROFEN 800 MG TABLET PO ONE (23:03)
[2019-03-22] MEDS ORDERED: LISINOPRIL 10 MG TABLET PO ONE (23:03)
[2019-03-22] MEDS ORDERED: HYDROCHLOROTHIAZIDE 12.5 MG TABLET PO ONE (23:03)
--- NOTE | 2019-03-22 23:28 | ER Document Report ---
HPI - HPI Time Seen by Provider: 03/22/19 22:41 Pain Level: 4 Context: Patient is a 44-year-old female presents emergency department with a chief complaint of bilateral knee pain. Patient states that around 4 PM this afternoon she was walking down 3-4 steps into her garage when her right knee gave out on her. Patient states she has had multiple problems with her knees she just had a surgery on the left one 1 year ago and needs surgery on the right knee. Patient states they do give out on her frequently. Patient states she did fall to her knees striking the concrete. Patient denies abrasions or lacerations to the knee. Patient states she took Aleve around 4 PM for her discomfort. - REPRODUCTIVE Reproductive: DENIES: : - MUSCULOSKELETAL Musculoskeletal: REPORTS: Extremity pain - bilteral knee pain Past Medical History - General Information source: Patient - Social History Smoking Status: Never Smoker Chew tobacco use (# tins/day): No Frequency of alcohol use: None Drug Abuse: None Lives with: Family Family History: Hypertension, Malignancy Patient has suicidal ideation: No Patient has homicidal ideation: No - Past Medical History Cardiac Medical History: Reports: Hx Hypertension - meds x yrs/160/102 office aware Denies: Hx Coronary Artery Disease, Hx Heart Attack Pulmonary Medical History: Reports: Hx Bronchitis, Hx Pneumonia Denies: Hx Asthma, Hx COPD EENT Medical History: Reports: None Neurological Medical History: Reports: Hx Migraine. Denies: Hx Cerebrovascular Accident, Hx Seizures Endocrine Medical History: Reports: None Renal/ Medical History: Reports: Hx Kidney Stones. 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 Skin Medical History: Reports None Psychiatric Medical History: Reports: None Traumatic Medical History: Reports: None Infectious Medical History: Reports: None Past Surgical History: Reports: Hx Cholecystectomy, Hx Genitourinary Surgery - ureter repair, Hx Gynecologic Surgery - D&C x2; endometrial biopsy, Hx Kidney (Renal Surgery) - kidney stone removal - Immunizations Hx Diphtheria, Pertussis, Tetanus Vaccination: Yes Vertical Provider Document - CONSTITUTIONAL Agree With Documented VS: Yes Exam Limitations: No Limitations General Appearance: No Apparent Distress - INFECTION CONTROL TRAVEL OUTSIDE OF THE [place] IN LAST 30 DAYS: No - HEENT HEENT: Atraumatic, Normocephalic, PERRLA - NECK Neck: Normal Inspection - RESPIRATORY Respiratory: Breath Sounds Normal, No Respiratory Distress - CARDIOVASCULAR Cardiovascular: Regular Rate, Regular Rhythm - GI/ABDOMEN Gastrointestinal: Abdomen Soft, Abdomen Non-Tender, Normal Bowel Sounds - MUSCULOSKELETAL/EXTREMETIES Notes: Bilateral knees do not reveal any edema, ecchymosis, deformity, erythema, abrasion or lacerations. Patient does not have any tenderness noted to the patellas bilaterally. Patient has tenderness to the left knee that is located on the medial aspect of the knee with palpation. Patient has tenderness to the right knee that is located to the lateral aspect of the knee with palpation. Course - Re-evaluation Re-evalutation: 03/22/19 23:39 We will obtain x-rays of the knees. I did inform the patient that this just checks for bony abnormality such as fracture dislocation. I did inform the patient she needs to follow-up with orthopedics as she has had a continued problems with her knees giving out on her and pain. Patient asking about an MRI. I did inform the patient that unless there is an emergent need we do not typically order MRIs in the emergency department. Patient verbalizes understanding. Patient reports she is due for her second dose of lisinopril with HCTZ as she does have a history of hypertension. Patient states her normal dose is 10/12.5. I will give a dose while in the emergency department. 03/22/19 23:42 Patient's bilateral knee x-ray report read no obvious effusion, fracture or dislocation. Will monitor the blood pressure to make sure it is trending downward prior to discharge. 03/23/19 00:15 Blood pressure is trending downward. Asymptomatic. Patient to follow up with Orthopedics in [place]. - Vital Signs Vital signs: Temp Pulse Resp BP Pulse Ox 98.3 F 90 16 198/129 H 98 03/22/19 22:07 03/22/19 22:07 03/22/19 22:07 03/22/19 23:01 03/22/19 22:07 - Diagnostic Test Radiology reviewed: Reports reviewed Radiology results interpreted by me: 03/22/19 23:41 Knee X-Ray 03/22/19 23:03 IMPRESSION: 1. No acute findings. Discharge - Discharge Clinical Impression: Knee pain Qualifiers: Chronicity: acute Laterality: bilateral Qualified Code(s): M25.561 - Pain in right knee Hypertension Qualifiers: Hypertension type: unspecified Qualified Code(s): I10 - Essential (primary) hypertension Condition: Stable Disposition: HOME, SELF-CARE Additional Instructions: Today you were seen in the emergency department for bilateral knee pain after a fall. Your x-rays were negative. Unfortunately x-rays only show bony abnormality such as a fracture dislocation. Due to your chronic knee pain you need to follow-up with your orthopedist in [place] as you may need additional imaging. Please call them tomorrow to make an appointment and make them aware that you did fall and were seen in the emergency department. Please return to the emergency department if you develop severe swelling, increasing pain, numbness or any alarming symptoms. Your blood pressure was elevated while in the emergency department. We did give you a dose of your blood pressure medication as this was overdue. Please return the emergency department if develop any severe headache, vomiting, chest pain or shortness of breath. Sprained Knee Your sprained knee results from a stretching or tearing of the ligaments which support the joint. This often results from a bending stress -- such as a twisting fall while skiing or a "clip" while playing football. The ligaments will require time and protection to heal adequately. A knee sprain can be quite serious, and should be taken seriously. The usual treatment is splinting of the knee, ice packs, and elevation. You shouldn't walk on the leg if weightbearing is painful. Unless the sprain is obviously a minor one, follow-up exam is very important. The degree of ligament damage often cannot be fully assessed at first due to muscle spasm and pain. Your treatment plan may change based on the physician's findings during your follow-up examination. Call the doctor at once if there is severe swelling, increasing pain, numbness, or other alarming symptoms. Forms: Return to Work Referrals: ZAINAB KNAPP PA-C [Primary Care Provider] - Follow up as needed
--- NOTE | 2019-03-22 23:39 | RADIOLOGY REPORT (SQ) ---
EXAM DESCRIPTION: [facility]: XR KNEE 1-2 VIEWS BILATERAL Views: 2 views of each knee CLINICAL HISTORY: 44 years Female, fall, b/l knee pain COMPARISON: None. FINDINGS: Left: Negative for acute fracture, dislocation, or radiopaque foreign body. No joint effusion. Right: Negative for acute fracture, dislocation, or radiopaque foreign body. No joint effusion. IMPRESSION: 1. No acute findings.
[2019-03-23 00:04] VITALS: BP 168/97
[2019-03-23] MEDS ORDERED: NA PHOS,M-B/NA PHOS,DI-BA (ADULT) 133 ML ENEMA PR ONE (00:39)
== END 2019-03-23 00:23 | disposition home or self-care (01) ==
LOC: ER 22:02
DX: M25.561 Pain in right knee (principal); M25.562 Pain in left knee; I10 Essential (primary) hypertension
CPT/HCPCS: 99283